=== PATIENT | female | born 1995 | race Caucasian/White ===

== ENCOUNTER 2019-11-24 22:01 | Emergency (ER) | payer OTHER ==
[2019-11-24 22:21] VITALS: BP 102/64
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
== END 2019-11-25 00:44 | disposition home or self-care (01) ==
LOC: ED 22:01
DX: S16.1XXA Strain of muscle, fascia and tendon at neck level, initial encounter (principal); S39.012A Strain of muscle, fascia and tendon of lower back, initial encounter; V43.52XA Car driver injured in collision with other type car in traffic accident, initial encounter; Y92.410 Unspecified street and highway as the place of occurrence of the external cause
CPT/HCPCS: 99282; 99284